=== PATIENT | female | born 1955 | race Caucasian/White ===

== ENCOUNTER → 2020-09-21 | Outpatient (CLI) | payer MEDICARE ==
[~2020-09-21] MED LIST: BUPIVACAINE MPF 0.5% 10 ML VIAL. INT ART ONE; IOHEXOL 300 MG/ML 50 ML VIAL. INT ART ONE; LIDOCAINE 1% Multi-Dose 20 ML VIAL. ID ONE; LISI-517 PO; methylPREDNISolone ACETATE 40 MG/ML VIAL. INT ART ONE
--- NOTE | 2020-09-22 12:42 | KCIC ---
EXAM: FLUOROSCPY-GUIDED left HIP STEROID INJECTION History: Osteoarthritis, left hip pain Consent: A written, informed consent was obtained from the patient prior to the procedure. Technique: Appropriate time out procedures were performed. The skin was prepped and draped in the usual fashion under aseptic precautions. Dilute 1% lidocaine w as used for local anesthesia. Under fluoroscopic guidance a 22 gauge long spinal needle was used to access the hip joint. A mixture of 4 mL iodinated contrast, 4 ml bupivacaine, 4 mL lidocaine and 80 mg of Depo-Medrol. Fluoroscopy time 12 seconds. Fluoroscopic images 1 IMPRESSION: Technically successful left hip steroid injection. Electronically signed by: Gregg Taylor MD (09/22/2020 12:39 PM) [id number]
== END | disposition home or self-care (01) ==
LOC: KCIC 10:09
PROVIDERS: ATTEND Family Medicine
DX: M16.12 Unilateral primary osteoarthritis, left hip (principal); Z79.899 Other long term (current) drug therapy
CPT/HCPCS: 20610; 77002; J1030; J3490; Q9967

== ENCOUNTER → 2021-01-30 | Outpatient (CLI) | payer MEDICARE ==
[~2021-01-30] MED LIST changes: +LIDOCAINE 1% Multi-Dose 20 ML VIAL. IJ ONE; -LISI-517 PO; +LISI5TAB15 PO
--- NOTE | 2021-01-31 14:01 | KCIC ---
EXAM: FLUOROSCOPY GUIDED LEFT HIP STEROID INJECTION History: Left hip pain COMPARISON: None available TECHNIQUE: Consent: An informed consent was obtained from the patient prior to the procedure. Appropriate time out procedures were performed. The skin was prepped and draped in the usual fashion under aseptic precautions. 1% lidocaine was util ized for local anesthesia. Under fluoroscopic guidance a 22 gauge long spinal needle was used to access the hip joint. 4 mL Omni paque 300, 4 mL lidocaine, 4 mL bupivacaine and 80 mg of Depo-Medrolwas injected. 12 seconds of fluoroscopy was used. Total fluoroscopic images 1. No immediate complications. IMPRESSION: Technically successful fluoroscopic-guided left hip steroid injection Electronically signed by: Gregg Taylor MD (01/31/2021 1:58 PM) [id number]
== END | disposition home or self-care (01) ==
LOC: KCIC 10:08
PROVIDERS: ATTEND Family Medicine
DX: M16.12 Unilateral primary osteoarthritis, left hip (principal); Z79.899 Other long term (current) drug therapy
CPT/HCPCS: 20610; 77002; J1030; J3490; Q9967